=== PATIENT | male | born 1985 | race Caucasian/White ===

== ENCOUNTER 2017-04-01 06:20 | Emergency (ER) | payer OTHER ==
[~2017-04-01] VITALS: Ht 185.4 cm; Wt 81.6 kg
[2017-04-01] MEDS ORDERED: ONDANSETRON 2MG/ML, 2ML ONE (06:58)
[2017-04-01] MEDS ORDERED: HYDROmorphone 1 MG/ML, 1ML ONE (06:58)
[2017-04-01] MEDS ORDERED: HYDROmorphone 1 MG/ML, 1ML IVPush PRN (07:00)
[2017-04-01] MEDS ORDERED: ONDANSETRON 2MG/ML, 2ML IVPush ONE (07:00)
[2017-04-01] MEDS ORDERED: SODIUM CHLORIDE 0.9% 1,000ML IVBOLUS ONE (07:00)
[2017-04-01] MEDS ORDERED: SODIUM CHLORIDE FLUSH 10ML SYR IVF ONE (07:00)
[2017-04-01 07:10] LABS: HEMOGLOBIN 15.8 g/dL (13.7-18.0); WHITE BLOOD COUNT 9.7 x10^3/uL (3.4-10)
[2017-04-01 07:18] LABS: ASPARTATE AMINO TRANSFERASE 19 U/L (15-37); BLOOD UREA NITROGEN 15 mg/dL (7-18)
[2017-04-01] MEDS ORDERED: KETOROLAC 30 MG/1 ML IVPush ONE (10:00)
[2017-04-01] MEDS ORDERED: KETOROLAC 30 MG/1 ML ONE (10:06)
[2017-04-01 10:13] VITALS: BP 119/79
== END 2017-04-01 10:24 | disposition home or self-care (01) ==
LOC: ED 10:00
DX: N20.0 Calculus of kidney (principal)
CPT/HCPCS: 36415; 74176; 76870; 80053; 81003; 83690; 85025; 96361; 96374; 96375; 99285; J1170; J1885; J2405; J7030

== ENCOUNTER 2018-10-13 19:22 | Emergency (ER) | payer OTHER ==
[~2018-10-13] VITALS: Ht 182.9 cm; Wt 88.7 kg
[2018-10-13 19:28] VITALS: BP 133/86
--- NOTE | 2018-10-13 19:43 | NUR ---
PT PRESENTED WITH BACK PAIN AND NOTES THAT IT IS SPASMING, TOOK FLEXERIL, TYLENOL, IBUPROFEN, PT AMBULATORY, AWAITING PA FOR EVAL AND ORDERS
--- NOTE | 2018-10-13 19:47 | NUR ---
PT UP TO RR WITH STEADY GAIT
[2018-10-13 20:00] LABS: BASOPHILS # (AUTO) 0.04 x10^3/uL (0-0.1); BASOPHILS % (AUTO) 1 % (0-1); EOSINOPHILS # (AUTO) 0.55 x10^3/uL (0-0.4); EOSINOPHILS % (AUTO) 8 % (1-7); LYMPHOCYTES # (AUTO) 3.01 x10^3/uL (1-3.4); LYMPHOCYTES % (AUTO) 43 % (22-44); MD NO; MEAN CORPUSCULAR HEMOGLOBIN 31.8 pg (27.5-34.5); MEAN CORPUSCULAR HGB CONC 34.1 g/dL (33.2-36.2); MEAN CORPUSCULAR VOLUME 93.4 fL (81-97); MEAN PLATELET VOLUME 7.9 fL (7.4-10.4); MONOCYTES # (AUTO) 0.44 x10^3/uL (0.2-0.8); MONOCYTES % (AUTO) 6 % (2-9); NEUTROPHILS # (AUTO) 3.01 x10^3/uL (1.8-6.8); NEUTROPHILS % (AUTO) 43 % (42-75); PLATELET COUNT 244 x10^3/uL (130-400); RED BLOOD COUNT 5.25 x10^6/uL (4.38-5.82)
[2018-10-13] MEDS ORDERED: DIAZEPAM 5 MG TABLET PO ONE (20:00)
[2018-10-13 20:02] LABS: ALBUMIN 4.4 g/dL (3.4-5.0); ANION GAP 4 mmol/L (5-15); CALCIUM 8.9 mg/dL (8.5-10.1); CHLORIDE 105 mmol/L (98-107)
[2018-10-13] MEDS ORDERED: DIAZEPAM 5 MG TABLET ONE (20:03)
[2018-10-13 20:06] LABS: ALANINE AMINOTRANSFERASE 46 U/L (12-78); ALKALINE PHOSPHATASE 72 U/L (45-117); BILIRUBIN,TOTAL 1.3 mg/dL (0.2-1.0); CREATININE 1.22 mg/dL (0.7-1.3); TOTAL PROTEIN 7.5 g/dL (6.4-8.2)
[2018-10-13] MEDS ORDERED: KETOROLAC 30 MG/1 ML ONE (20:06)
[2018-10-13 20:07] LABS: MICROSCOPIC NOT IND
--- NOTE | 2018-10-13 20:08 | NUR ---
PT MEDICATED PER MAR
[2018-10-13 20:11] LABS: CULTURE INDICATED? NO
[2018-10-13] MEDS ORDERED: KETOROLAC 60 MG/2 ML IM ONE (20:30)
== END 2018-10-13 21:16 | disposition home or self-care (01) ==
LOC: ED 20:45
DX: S39.012A Strain of muscle, fascia and tendon of lower back, initial encounter (principal); X58.XXXA Exposure to other specified factors, initial encounter; Y93.89 Activity, other specified; Y92.89 Other specified places as the place of occurrence of the external cause; Y99.8 Other external cause status
CPT/HCPCS: 36415; 80053; 81003; 85025; 96372; 99283; J1885